=== PATIENT | female | born 1940 | race Caucasian/White ===

== ENCOUNTER 2020-01-27 20:50 | Emergency (ER) | payer MEDICARE, MEDICAID ==
[2020-01-27] MEDS ORDERED: Lidocaine 1% with EPINEPHrine 1:100,000 20 ML MDV ONE (21:02)
[2020-01-27] MEDS ORDERED: Diphtheria,Pertussis(Acell),Tetanus Vaccine 0.5 ML Syringe IM ONE (21:24)
--- NOTE | 2020-01-27 21:47 | EDM.PDOC ---
ED HPI GENERAL MEDICAL PROBLEM - General Chief Complaint: Laceration Stated Complaint: laceration Time Seen by Provider: 01/27/20 20:50 Source of Information: Reports: Patient, Family History Limitations: Reports: No Limitations - History of Present Illness INITIAL COMMENTS - FREE TEXT/NARRATIVE: Patient states she was standing up on a chair cleaning up some cupboards about 45 minutes prior to arrival when she slipped and fell cutting herself on a cardboard box to the thompson of her right leg. She denies any numbness or tingling or loss of sensation or trouble walking she has no other complaints at this time. She does not have any diabetic issues she does have cardiac stents and coronary artery disease her last tetanus was 8 to 10 years ago tetanus will be given today. Onset: Today Duration: Minutes: Location: Reports: Lower Extremity, Right Severity: Mild (5/10) Improves with: Reports: None Worsens with: Reports: None Associated Symptoms: Reports: No Other Symptoms, Other (She denies any other injuries no head injury). Denies: Confusion, Chest Pain, Cough, Diaphoresis, Nausea/Vomiting, Shortness of Breath Right Lower Leg Pain Score (Numeric/FACES): 5 - Related Data Allergies Allergy/AdvReac Type Severity Reaction Status Date / Time aspirin Allergy Other Verified 01/27/20 21:05 ciprofloxacin Allergy Rash Verified 01/27/20 21:05 metoclopramide [From Reglan] Allergy Dizziness Verified 01/27/20 21:05 metronidazole Allergy Rash Verified 01/27/20 21:05 Home Meds: Home Meds Aspirin [Ecotrin EC] 81 mg PO DAILY 01/27/20 [History] Calcium Carb, Citrate/Vit D3 [Calcium + D3 ER Tablet] 1 each PO DAILY 01/27/20 [History] Calcium Carbonate 500 mg PO ASDIRECTED PRN 01/27/20 [History] Cholecalciferol (Vitamin D3) [Vitamin D3] 1,000 unit PO DAILY 01/27/20 [History] Citalopram Hydrobromide [Celexa] 40 mg PO DAILY 01/27/20 [History] Clobetasol [Clobetasol Propionate] 25 ml TOP BID PRN 01/27/20 [History] Ibandronate [Boniva] 150 mg PO ASDIRECTED 01/27/20 [History] Isosorbide Mononitrate [Imdur] 30 mg PO DAILY 01/27/20 [History] Krill/[place]es[place]-3/Dha/Epa/Lipids [Krill Oil 350 mg Softgel] 1 each PO DAILY 01/27/20 [History] L.acidoph,Paracasei, B.lactis [Probiotic] 1 each PO DAILY 01/27/20 [History] Magnesium Oxide 400 mg PO DAILY 01/27/20 [History] Nitroglycerin 0.4 mg SL ASDIRECTED PRN 01/27/20 [History] [place]-3/DHA/Epa/Fish Oil [Artesia-3 Fish Oil 1,000 MG Sfgl] 1,000 mg PO DAILY 01/27/20 [History] Pantoprazole Sodium [Protonix] 40 mg PO DAILY 01/27/20 [History] Pnv No.95/Ferrous Fum/Folic AC [ Vitamin Tablet] 1 each PO DAILY 01/27/20 [History] Rosuvastatin Calcium [Crestor] 20 mg PO DAILY 01/27/20 [History] Turmeric 400 mg PO DAILY 01/27/20 [History] metroNIDAZOLE [Metrocream] 45 gm TP ASDIRECTED PRN 01/27/20 [History] Past Medical History Cardiovascular History: Reports: CAD, High Cholesterol, Syncope, Other (See Below) Other Cardiovascular History: atherosclerosis of both carotid arteries, mitral valve disease Respiratory History: Reports: SOB Gastrointestinal History: Reports: Other (See Below) Other Gastrointestinal History: Dela Cruz's esophagus Hematologic History: Reports: Anemia Social & Family History - Tobacco Use Smoking Status *Q: Former Smoker Used Tobacco, but Quit: Yes Month/Year Tobacco Last Used: 1964 ED ROS GENERAL - Review of Systems Review Of Systems: See Below Constitutional: Reports: No Symptoms HEENT: Reports: No Symptoms Respiratory: Reports: No Symptoms Cardiovascular: Reports: No Symptoms Endocrine: Reports: No Symptoms GI/Abdominal: Reports: No Symptoms : Reports: No Symptoms Musculoskeletal: Reports: Leg Pain Skin: Reports: Other (Laceration) Neurological: Reports: No Symptoms Psychiatric: Reports: No Symptoms Hematologic/Lymphatic: Reports: No Symptoms. Denies: Anemia, Easy Bleeding, Easy Bruising Immunologic: Reports: No Symptoms ED EXAM, SKIN/RASH Exam: See Below Exam Limited By: No Limitations General Appearance: Alert, WD/WN, No Apparent Distress, Other (Cranial nerves II through XII are intact patient is alert and oriented x4 she has normal conversation logical thought process with normal gait) Nose: Normal Inspection Throat/Mouth: Normal Inspection, Normal Lips, Normal Teeth, Normal Gums, Normal Oropharynx, Normal Voice, No Airway Compromise Head: Atraumatic, Normocephalic Neck: Normal Inspection, Supple, Non-Tender, Full Range of Motion Respiratory/Chest: No Respiratory Distress, Lungs Clear, Normal Breath Sounds, No Accessory Muscle Use, Chest Non-Tender Cardiovascular: Normal Peripheral Pulses, Regular Rate, Rhythm, No Edema, No Gallop, No JVD, No Murmur GI/Abdominal: Normal Bowel Sounds, Soft, Non-Tender, No Organomegaly, No Distention, Pelvis Stable Back Exam: Normal Inspection, Other Extremities: Normal Inspection, Normal Range of Motion, Non-Tender, No Pedal Edema, Normal Capillary Refill, Other (Anterior right mid tibia there is a 5 cm x 1 cm x 0.5 cm linear laceration minimal active bleeding no visible tendons noted patient has full range of motion with the right lower extremity dorsiflexion plantar flexion 2+ DTR equal soft touch sensation she is neurovascular intact has a strong dorsalis pedis posterior tibialis normal cap refill there is noted fresh ecchymosis and edema just above the laceration patient has no tenderness to palpation over the tibia or the tibial plateau area the ileal lateral malleolus of the ankle or the navicular and fifth metatarsal of the foot) Neurological: Alert, Oriented, CN II-XII Intact, Normal Cognition, Normal Gait, Normal Reflexes, No Motor/Sensory Deficits Psychiatric: Normal Affect, Normal Mood Skin: Warm, Dry, Intact, Normal Color, No Rash Front/Back Body Diagram: 1 - Laceration Course - Vital Signs Text/Narrative:: Tdap was given to the patient The area was cleaned with Hibiclens sponge irrigated with copious amount of normal saline cleaned with foam soap and Hibiclens sponge again irrigated with normal saline again. 4 cc of gain with epinephrine was injected laceration was closed with number of 3 subcutaneous simple interrupted 4-0 Vicryl the top was closed with a continuous running stitch 4-0 Ethilon well approximated covered with medi honey Telfa pad 4 x 4 and Kerlix patient was given wound instructions and told to have the stitches removed in 7 to 10 days along with a wound recheck in 48 hours or if anything changes to come back to the emergency room patient denies wanting anything for pain. Blood pressure was noted to be elevated the rest of vitals are within normal limits patient has no complaints or signs symptoms of endorgan damage Blood pressure checked at discharge 162/95 patient states she feels fine she believes is secondary to the situation and still has no complaints of endorgan damage Last Recorded V/S: Last Vital Signs Temp 37.2 C 01/27/20 20:50 Pulse 83 01/27/20 20:50 Resp 16 01/27/20 20:50 BP 162/95 H 01/27/20 21:38 Pulse Ox 96 01/27/20 20:50 - Orders/Labs/Meds Orders: Active Orders 24 hr Category Date Time Status Vaccines to be Administered [RC] PER UNIT ROUTINE Care 01/27/20 21:24 Active Meds: Medications Discontinued Medications Generic Name Dose Route Start Last Admin Trade Name Isamar PRN Reason Stop Dose Admin Diphtheria/Tetanus/Acell Pertussis 0.5 ml 01/27/20 21:24 01/27/20 21:31 Adacel IM 01/27/20 21:25 0.5 ml .ONCE ONE Administration Lidocaine/Epinephrine Confirm 01/27/20 21:02 01/27/20 20:55 Xylocaine 1% With Epinephrine 1:100,000 Administered 01/27/20 21:03 20 ml Dose Administration 20 ml .ROUTE .STK-MED ONE Departure - Departure Time of Disposition: 21:40 Disposition: Home, Self-Care 01 Condition: Good Clinical Impression: Laceration of right lower extremity - Discharge Information *PRESCRIPTION DRUG MONITORING PROGRAM REVIEWED*: No *COPY OF PRESCRIPTION DRUG MONITORING REPORT IN PATIENT NOELLE: No Instructions: Laceration Care, Adult, [id number] Referrals: PCP,None [Primary Care Provider] - Forms: ED Department Discharge Additional Instructions: Keep the area clean and dry wash it with warm hot soapy water apply the medi honey to the area twice a day keep it dressed until tomorrow afternoon then you may wash it and redress it redress it twice a day after that for 2 days on the third day let it get some air at night and continue the dressing changes at least once a day remove the stitches in 7 to 10 days Follow-up with your primary care provider in the next 48 hours for wound recheck Apply ice to the area on and off for the next 12 hours usually 1 hour on 1 hour off Return to the emergency room if anything changes or gets worse Sepsis Event Note (ED) - Evaluation Sepsis Screening Result: No Definite Risk - Focused Exam Vital Signs: Vital Signs Temp Pulse Resp BP Pulse Ox 01/27/20 21:38 162/95 H 01/27/20 20:50 37.2 C 83 16 182/97 H 96 - Problem List & Annotations (1) Laceration of right lower extremity SNOMED Code(s): 858254119, [id number] Code(s): S81.811A - LACERATION W/O FOREIGN BODY, RIGHT LOWER LEG, INIT ENCNTR Status: Acute Current Visit: Yes - My Orders Last 24 Hours: My Active Orders 01/27/20 21:24 Vaccines to be Administered [RC] PER UNIT ROUTINE - Assessment/Plan Last 24 Hours: My Active Orders 01/27/20 21:24 Vaccines to be Administered [RC] PER UNIT ROUTINE
== END 2020-01-27 21:48 | disposition home or self-care (01) ==
LOC: VM.ED 20:50
DX: S81.811A Laceration without foreign body, right lower leg, initial encounter (principal); E78.00 Pure hypercholesterolemia, unspecified; I25.10 Atherosclerotic heart disease of native coronary artery without angina pectoris; Z87.891 Personal history of nicotine dependence; Z23 Encounter for immunization; Z88.6 Allergy status to analgesic agent; Z88.1 Allergy status to other antibiotic agents; Z79.82 Long term (current) use of aspirin; Z88.8 Allergy status to other drugs, medicaments and biological substances; Z79.899 Other long term (current) drug therapy; W20.8XXA Other cause of strike by thrown, projected or falling object, initial encounter
CPT/HCPCS: 12002; 12032; 90471; 90715; 99282-25; 99283-GF